=== PATIENT | male | born 2000 | race Caucasian/White ===

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

== ENCOUNTER 2021-05-03 10:17 | Emergency (ER) | payer MEDICAID, SELFPAY ==
[2021-05-03 10:18] VITALS: BP 131/71; PULSE 75; RESP 14; TEMP 36.7; O2SAT 97; BMI 23.4
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
--- NOTE | 2021-05-03 12:05 | ED.RN ---
pt states he needs to slat pickler his girlfriend from work and can't wait any longer. rn explained to pt that if he leaves it will be against medical advice. pt is agreeable.
== END 2021-05-03 12:05 | disposition left against medical advice (07) ==
PROVIDERS: Emergency Provider Emergency Medicine; PCP Pediatrics
DX: H57.89 Other specified disorders of eye and adnexa (principal)

== ENCOUNTER 2021-05-03 13:08 | Emergency (ER) | payer MEDICAID, SELFPAY ==
[2021-05-03 10:18] VITALS: BMI 23.4
[2021-05-03 13:10] VITALS: BP 115/59; PULSE 68; RESP 15; TEMP 35.8; O2SAT 98; BMI 18.3
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
== END 2021-05-03 15:40 | disposition home or self-care (01) ==
LOC: ED 15:04
PROVIDERS: Emergency Provider Emergency Medicine; PCP Pediatrics
DX: T15.92XA Foreign body on external eye, part unspecified, left eye, initial encounter (principal); H57.89 Other specified disorders of eye and adnexa
CPT/HCPCS: 99282; A4216

== ENCOUNTER 2021-05-15 09:30 | Emergency (ER) | payer MEDICAID, SELFPAY ==
[2021-05-15 09:32] VITALS: BP 143/84; PULSE 91; RESP 16; TEMP 35.8; O2SAT 99; BMI 18.6
[2021-05-15 09:46] VITALS: BP 143/84; PULSE 91; RESP 16; TEMP 35.8; O2SAT 99
--- NOTE | 2021-05-15 10:22 | RAD_ITS ---
STUDY: X-RAY CHEST REASON FOR EXAM: Male, 20 years old. Chest pain TECHNIQUE: PA and lateral views of the chest. COMPARISON: 03/10/2019 FINDINGS: The lungs are clear and expanded. There is no demonstrated pleural abnormality. Normal size heart. Normal mediastinum and dhruv. Normal visualized pulmonary arteries. Normal visualized aortic arch and descending thoracic aorta. Normal visualized thoracic spine. Normal visualized ribs, clavicles, and shoulders. There is no demonstrated abnormality of the visualized soft tissue structures of the upper abdomen. RAD/Chest PA and Lateral IMPRESSION: Normal x-ray examination of the chest. Electronically Signed: Huseyin Oglesby MD at 11:27 EDT , Service support ,
--- NOTE | 2021-05-15 11:19 | EDS_ITS ---
HPI History of Present Illness Chief Complaint: Cold Sx Informant: patient Narrative Narrative: Patient is a 20-year-old male with no significant past medical history presenting with upper respiratory symptoms. Patient states of the past few days has had congestion, mild sore throat, runny nose and cough that is been productive of clear phlegm. Had he notes he was around a friend who had similar symptoms. He also states a couple days ago he was in his chair played a video game and suddenly had pain on the left side of his chest. He stated his last for couple seconds. It felt like a cramp in his chest. That resolved but he was not sure if that in conjunction with his current symptoms were related. He also notes he needs a work note for today. He denies any fever, rash, headache or GI/ symptoms. He has not had any known exposures to Covid. He is not his Covid vaccine. He states I do not trust it. Patient does vape. PFSH PFSH Home Medications No Known/Unobtainable [No Known Home Medications] 06/07/16 [History Last Taken Unknown] Allergy/AdvReac Type Severity Reaction Status Date / Time No Known Allergies Allergy Verified 05/15/21 09:34 Surgical History History of appendectomy Social History Smoking Status: Never smoker [facility] ED Constitutional Constitutional ED: Denies chills, fever(s), malaise or sweats Eyes Eyes: Denies blurry vision or loss of vision ENT ENT ED: Reports rhinorrhea and sore throat; Denies ear pain Cardiovascular Cardiovascular: Reports chest pain; Denies dizziness Respiratory/Chest Respiratory/Chest: Reports cough and sputum; Denies dyspnea or dyspnea on exertion Gastrointestinal Gastrointestinal: Denies nausea or vomiting Genitourinary Genitourinary ED: Denies dysuria or hematuria Musculoskeletal Musculoskeletal: Denies arthralgias or myalgias Integumentary Denies rash or wounds Neurologic Neurologic: Denies focal weakness or headache(s) Psychiatric Psychiatric: Denies anxiety or behavioral changes EXAM Physical Exam Const Vital Signs: 05/15/21 09:32 05/15/21 09:46 Temperature 96.4 F L 96.4 F L Temperature Source Temporal Temporal Pulse Rate 91 91 Respiratory Rate 16 16 Respiratory Effort Normal Non-Labored Blood Pressure 143/84 H 143/84 H Blood Pressure Mean 103 103 Pulse Ox 99 99 Oxygen Delivery Method Room Air Room Air Positive well nourished and well developed General Appearance ED: well developed HEENT Reports TM's clear and moist mucous membranes HEENT Narrative: Normal oropharynx. No tonsillar exudate or erythema present. Tympanic Membrane ED: Yes TM's clear Eyes PERRL and EOMs intact bilaterally Neck no lymphadenopathy, supple and no JVD Neck Narrative: No meningeal signs Chest Wall inspection of chest normal and palpation of chest normal Resp normal respiratory effort and clear to auscultation bilaterally Cardio regular rate, regular rhythm and no murmurs GI normal to inspection, nondistended, normoactive bowel sounds Extremity normal to inspection General Extremety ED: Negative for edema General Extremity: Negative for edema Neuro oriented x3 Neuro Narrative: No focal deficits appreciated Sensorium / Orientation: alert Psych mental status grossly normal Skin no rashes or lesions noted MDM MDM MDM Narrative Medical decision making narrative: Patient evaluated for upper respiratory symptoms. Presentation is consistent with a viral URI. Does not have any cough on my exam. Given he did have an episode of chest wall pain a couple days ago and is quite thin in stature I did obtain a chest x-ray to rule out pneumothorax. This is negative. I do not suspect any cardiac event. I do not clinically suspect pneumonia and chest x-ray is not consistent with pneumonia. Patient is offered Covid test but declined stating he does not want to be swabbed. He is counseled he will wear a mask around others when he is symptomatic. However I have a lower suspicion for Covid at this time and suspect he has some other type of viral upper respiratory illness given the current patient population. Patient is given a work note per his request. He is counseled return precautions. He verbalized agreement understanding this plan. Surgically stable condition. Impression 1. Upper respiratory viral infection 2. Chest wall pain, noncardiac Radiography Chest X-Ray - ED: 2 View, Read by ED Physician, Read by Radiologist and Normal Discharge Plan Triage Chief Complaint: Cold Sx ED Provider: Ally Katz Dx/Rx/DC Orders Instructions: ED Viral Syndrome (Adult), ED URI, Viral, No Abx (Adult) Prescriptions: No Action No Known Home Medications RF: 0 Primary Care Provider: Pedro Thompson Referrals: Pedro Thompson MD [Primary Care Provider] - Activity Restrictions/Additional Instructions: Take [id number] cold and flu medicines as well as decongestants as needed for symptoms. Wear mask around others until your symptoms have resolved. Disposition Disposition: Home, Self Care
== END 2021-05-15 11:51 | disposition home or self-care (01) ==
PROVIDERS: Emergency Provider Emergency Medicine; PCP Pediatrics
DX: B34.9 Viral infection, unspecified (principal); R07.89 Other chest pain
CPT/HCPCS: 71046; 99282

== ENCOUNTER 2021-11-09 21:27 | Emergency (ER) | payer MEDICAID, SELFPAY ==
[2021-11-09 21:28] VITALS: BP 113/60; PULSE 64; RESP 16; TEMP 36.8; O2SAT 96; BMI 17.5
== END 2021-11-09 22:45 | disposition left against medical advice (07) ==
LOC: ED 22:45
PROVIDERS: PCP Pediatrics
DX: R11.2 Nausea with vomiting, unspecified (principal); Z53.21 Procedure and treatment not carried out due to patient leaving prior to being seen by health care provider

== ENCOUNTER 2022-01-09 21:06 | Emergency (ER) | payer MEDICAID, SELFPAY ==
[2022-01-09 21:06] VITALS: BP 147/79; PULSE 103; RESP 16; TEMP 36.2; O2SAT 95; BMI 19.8
--- NOTE | 2022-01-09 21:14 | EDS_ITS ---
HPI History of Present Illness Chief Complaint: Nausea/Vomiting Informant: patient Onset/Context/Timing Onset: Today Current Severity: Moderate Maximum Severity: Moderate Narrative Narrative: Patient present secondary to nausea and vomiting. Patient states he developed symptoms earlier this morning is been vomiting all day. Has been trying to sleep a lot and time he is awake he is vomiting. He does report some blood streaks with his vomitus earlier. Recently it has been clear. He denies fever but has had some chills. He denies diarrhea. He denies alcohol consumption recently. PFSH PFSH Medical History no medical history no medical history Home Medications ondansetron 4 mg PO Q8H PRN #10 tab 01/09/22 [Rx Last Taken Unknown] Allergy/AdvReac Type Severity Reaction Status Date / Time No Known Allergies Allergy Verified 01/09/22 21:07 Surgical History History of appendectomy Social History Smoking Status: Current every day smoker tobacco type: e-cigarettes ROS ROS ED Constitutional Constitutional ED: Reports chills; Denies fever(s) Eyes Eyes: Denies blurry vision or change in vision ENT ENT ED: Denies rhinorrhea or sore throat Cardiovascular Cardiovascular: Denies chest pain or palpitations Respiratory/Chest Respiratory/Chest: Denies cough or dyspnea Gastrointestinal Gastrointestinal: Reports nausea and vomiting; Denies abdominal pain or diarrhea Genitourinary Genitourinary ED: Denies dysuria or hematuria Musculoskeletal Musculoskeletal: Denies myalgias Integumentary Denies rash Neurologic Neurologic: Denies headache(s) Allergic/Immunologic Allergic/Immunologic ED: Denies urticaria EXAM Physical Exam Const Vital Signs: 01/09/22 21:06 Temperature 97.2 F L Temperature Source Temporal Pulse Rate 103 H Respiratory Rate 16 Blood Pressure 147/79 H Blood Pressure Mean 101 Pulse Ox 95 Oxygen Delivery Method Room Air Positive well nourished and well developed General Appearance ED: well developed HEENT Negative for trauma Eyes PERRL and EOMs intact bilaterally Neck supple Resp normal respiratory effort and clear to auscultation bilaterally Cardio regular rate and regular rhythm GI non-tender Auscultation: hypoactive bowel sounds Palpation: soft Extremity normal to inspection Neuro oriented x3 Sensorium / Orientation: alert Psych mental status grossly normal Skin no rashes or lesions noted MDM MDM MDM Narrative Medical decision making narrative: Patient given Zofran Protonix along with IV fluids. Lab work ordered. Lab Data Attestation: I reviewed the patient's lab results. Labs: Laboratory Results - last 24 hr 01/09/22 01/09/22 21:23 21:23 WBC 23.3 H RBC 5.10 Hgb 14.5 Hct 7.8 L MCV 76.5 L MCH 28.4 MCHC 37.2 H RDW Std Deviation 33.2 L RDW Coeff of Joselito 11.9 Plt Count 255 MPV 10.0 Immature Gran % (Auto) 0.400 Neut % (Auto) 92.5 H Lymph % (Auto) 3.0 L [place] % (Auto) 4.1 Eos % (Auto) 0.0 Baso % (Auto) 0.0 Absolute Neuts (auto) 21.6 H Absolute Lymphs (auto) 0.70 L Nucleated RBC % 0 Differential Comment SCANNED Sodium 140 Potassium 3.8 Chloride 104 Carbon Dioxide 28.0 Anion Gap 8 BUN 13 Creatinine 1.11 Estim Creat Clear Calc 88.54 Est GFR (MDRD) Af Amer 109 Est GFR (MDRD) Non-Af 90 BUN/Creatinine Ratio 11.7 Glucose 123 H Calcium 9.6 Total Bilirubin 0.80 Direct Bilirubin 0.21 AST 13 L ALT 14 L Alkaline Phosphatase 76 Total Protein 8.3 H Albumin 4.9 Globulin 3.4 Lipase 41 L Treatment and Re-Evaluation Comments:: Repeat evaluation patient sleeping comfortably. He is easily awakened. He is able to tolerate ice chips and ice water. He will begin prescription for Zofran at home. I believe his elevated white count is a stress response from the vomiting. Abdominal exam remains benign. Discharge Plan Triage Chief Complaint: Nausea/Vomiting ED Provider: Fawn Johns Dx/Rx/DC Orders Clinical Impression: Viral gastroenteritis Instructions: ED Vomiting (Adult) Prescriptions: New ondansetron 4 mg tablet,disintegrating 4 mg PO Q8H PRN (Reason: nausea and vomiting) Qty: 10 RF: 0 Primary Care Provider: Pedro Thompson Referrals: Pedro Thompson MD [Primary Care Provider] - 3-5 Days if not improving Disposition Disposition: Home, Self Care
[2022-01-09] MEDS: Ondansetron 4 MG/2 ML Vial IV (21:24)
[2022-01-09] MEDS: 0.9% Normal Saline 1,000 ML 1000 ML IV (21:26)
[2022-01-09 21:45] LABS: AST(SGOT) 13 U/L (15-37); Alanine Aminotransfer ALT/SGPT 14 U/L (16-61); Albumin, Serum 4.9 g/dL (3.2-5.0); Alkaline Phosphatase 76 U/L (45-117); Anion Gap 8 (5-15); BUN 13 mg/dL (7-18); BUN/Creat Ratio 11.7 RATIO (10-20); Bilirubin, Direct 0.21 mg/dL (0.00-0.30); Calcium,Total 9.6 mg/dL (8.5-10.1); Chloride 104 mmol/L (98-107); Creatinine, Serum 1.11 mg/dL (0.70-1.30); EST Glomerular Filtration Rate 90 mL/min (>60); Est Glom Filt Rate - Afr Amer 109 mL/min (>60); Estimated Creatinine Clearance 88.54 ml/min; Globulin 3.4 g/dL (2.2-4.2); Glucose 123 mg/dL (74-106); Lipase 41 U/L (73-393); Potassium 3.8 mmol/L (3.5-5.1); Protein, Total 8.3 g/dL (6.4-8.2); Sodium Level 140 mmol/L (136-145)
[2022-01-09 22:06] LABS: Mean Corp Hgb Conc 37.2 g/dL (32-36); Mean Corpuscular Hgb 28.4 pg (27.0-32.0); Mean Corpuscular Volume 76.5 fL (80-94); Monocyte% 4.1 % (0-10); NRBC Flagged by Analyzer 0 % (0-5); Neutrophil % 92.5 % (47-70); POSITIVE COUNT YES; POSITIVE DIFFERENTIAL YES; RBC Distribution Width CV 11.9 % (11.6-14.6); RBC Distribution Width SD 33.2 fl (35.1-43.9)
[2022-01-09 22:13] LABS: Hemoglobin 14.5 g/dL (13.0-16.5); White Blood Count 23.3 K/mm3 (4.4-11.0)
[2022-01-09 22:14] LABS: Differential Indicated SCAN CRITERIA MET; Platelet Count 255 K/mm3 (150-450)
[2022-01-09 22:16] LABS: Absolute Neutrophil Count 21.6 X10^3/uL (2.0-7.7); Monocyte# 0.95 X10^3/uL; Neutrophil # 21.55 X10^3/uL (2.7-7.7)
[2022-01-09 22:20] LABS: Differential Comment SCANNED
[2022-01-09 23:13] VITALS: PULSE 87; RESP 16; O2SAT 98
== END 2022-01-09 23:14 | disposition home or self-care (01) ==
PROVIDERS: Emergency Provider Emergency Medicine; PCP Pediatrics; Visit Provider Emergency Medicine
DX: A08.4 Viral intestinal infection, unspecified (principal); F17.210 Nicotine dependence, cigarettes, uncomplicated
CPT/HCPCS: 80048; 80076; 83690; 85025; 96365; 96375; 99284; J7030; A4216; J2405

== ENCOUNTER 2022-06-07 05:04 | Emergency (ER) | payer MEDICAID, SELFPAY ==
[2022-06-07 05:05] VITALS: BP 131/83; PULSE 78; RESP 18; TEMP 36.6; O2SAT 100; BMI 17.5
--- NOTE | 2022-06-07 05:32 | CT_ITS ---
We are attempting to reach an attending provider to discuss findings. An addendum with communication details will be sent when the communication is complete. STUDY: CT BRAIN WITHOUT CONTRAST REASON FOR EXAM: Male, 21 years old. seizure RADIATION DOSAGE (If Supplied By Facility): CTDIvol = ( 44.99 ) mGy, DLP = ( 796.11 ) mGycm TECHNIQUE: Transaxial CT imaging of the brain was performed without administration of intravenous contrast material. Individualized dose optimization techniques were used for this CT. COMPARISON: No relevant priors. FINDINGS: BRAIN: No acute bleed. No edema. Guan-white matter differentiation is maintained. Basilar artery at the skull base is relatively hyperdense which is most likely artifactual related to degree of motion and adjacent skull base. Basilar thrombosis could have a similar appearance and is difficult to exclude. VENTRICLES AND SULCI: Not dilated. EXTRA-AXIAL: No hemorrhage, fluid collection, or mass. CALVARIUM / SKULL BASE: Unremarkable. FACE/SINUSES: Unremarkable. SOFT TISSUES: Unremarkable. CT/Brain/Head without Contrast IMPRESSION: Relatively hyperdense basilar artery likely artifactual but cannot entirely exclude basilar thrombosis. If there is concern for basilar thrombosis, CT angiogram head and neck recommended. No other acute findings. Electronically Signed: Stacie Fletcher MD at 6:13 EDT ,
[2022-06-07 05:50] LABS: Absolute Lymphocyte Count 1.02 X10^3/uL (0.83-4.51); Absolute Neutrophil Count 5.2 X10^3/uL (2.0-7.7); Basophil# 0.06 X10^3/uL; Basophil% 0.9 % (0-1); Eosinophil# 0.09 X10^3/uL; Eosinophils% 1.3 % (0-5); Hematocrit 38.8 % (40-54); Hemoglobin 14.4 g/dL (13.0-16.5); Lymphocyte # 1.02 X10^3/ul (0.83-4.51); Lymphocyte % 15.2 % (19-41); Mean Corp Hgb Conc 37.1 g/dL (32-36); Mean Corpuscular Hgb 29.6 pg (27.0-32.0); Mean Corpuscular Volume 79.7 fL (80-94); Mean Platelet Vol. 9.6 fl (6.2-12.0); Monocyte# 0.36 X10^3/uL; Monocyte% 5.3 % (0-10); NRBC Flagged by Analyzer 0 % (0-5); Neutrophil # 5.18 X10^3/uL (2.7-7.7); Platelet Count 273 K/mm3 (150-450); RBC Distribution Width CV 12.2 % (11.6-14.6); RBC Distribution Width SD 35.1 fl (35.1-43.9); Red Blood Count 4.87 M/mm3 (4.6-6.2); White Blood Count 6.7 K/mm3 (4.4-11.0)
[2022-06-07] MEDS: Metoclopramide 10 MG/2 ML Vial IV (05:54)
[2022-06-07] MEDS: Ketorolac 30 MG/ML Syringe IV (05:55)
[2022-06-07] MEDS: DiphenhydrAMINE 50 MG/ML Syringe 25 MG IV (05:57)
[2022-06-07] MEDS: 0.9% Normal Saline 1,000 ML 999 ML IV (05:58)
[2022-06-07 06:12] LABS: Anion Gap 7 (5-15); BUN 12 mg/dL (7-18); BUN/Creat Ratio 12.8 RATIO (10-20); Calcium,Total 9.6 mg/dL (8.5-10.1); Chloride 105 mmol/L (98-107); Creatinine, Serum 0.94 mg/dL (0.70-1.30); EST Glomerular Filtration Rate 108 mL/min (>60); Est Glom Filt Rate - Afr Amer 131 mL/min (>60); Estimated Creatinine Clearance 98.23 ml/min; Glucose 144 mg/dL (74-106); Magnesium 2.5 mg/dL (1.6-2.6); Potassium 3.8 mmol/L (3.5-5.1); Sodium Level 137 mmol/L (136-145)
--- NOTE | 2022-06-07 06:19 | CT_ITS ---
STUDY: CTA HEAD AND NECK WITH CONTRAST REASON FOR EXAM: Male, [address] RADIATION DOSAGE (If Supplied By Facility): CTDIvol = ( 21.7 ) mGy, DLP = ( 692.16 ) mGycm TECHNIQUE: CT angiography was performed with a multi-detector CT scanner. Data acquisition was obtained from the skull base through the vertex following intravenous administration of IV 100mL [id number]-[id number]. MIP images were reconstructed from the axial data set. Post-processing of the angiographic images was performed, with multiplanar reformation and 3D reconstruction. Individualized dose optimization techniques were used for this CT. COMPARISON: Noncontrast CT head earlier.. FINDINGS: ---CTA HEAD CAROTID ARTERIES: No significant stenosis or occlusion. ANTERIOR CEREBRAL ARTERIES: No significant stenosis or occlusion. MIDDLE CEREBRAL ARTERIES: No significant stenosis or occlusion. POSTERIOR CEREBRAL ARTERIES: No significant stenosis or occlusion. BASILAR ARTERY: No significant stenosis or occlusion. VERTEBRAL ARTERIES: No significant stenosis or occlusion. VENOUS STRUCTURES: Unremarkable. OTHER: None. ---CTA NECK AORTIC ARCH: Unremarkable. CAROTID ARTERIES: No significant stenosis. VERTEBRAL ARTERIES: No significant stenosis. OTHER ARTERIES: Unremarkable. VENOUS STRUCTURES: Unremarkable. BONES/SOFT TISSUES: Unremarkable. OTHER: None. CT/CTA Head AND Neck W/ Contrast IMPRESSION: No significant stenosis or large vessel occlusion. Specifically, no basilar thrombosis. Electronically Signed: Stacie Fletcher MD at 7:34 EDT ,
--- NOTE | 2022-06-07 07:00 | EX.ED.DYSGE1 ---
HPI History of Present Illness Chief Complaint: Seizure Narrative Narrative: Patient is a 21-year-old male who was brought in by EMS today with potential seizure. The patient lives with his girlfriend and reportedly he had spasm and shaking activity while in bed. She states that he was not responding and secondary to this she called EMS. Patient reports that he remembers going to bed but nothing further. He states when he awoke he saw EMS and police around his bed and he states he knows who he was and where he is at but was unsure why those individuals were present. He sates he uses marijuana daily but otherwise denies any alcohol use or illicit drug. He denies any new medication or recent head trauma. With concern for underlying seizure he was brought in for evaluation. Patient does state that he urinated on himself during this event. PFSH PFSH Allergy/AdvReac Type Severity Reaction Status Date / Time No Known Allergies Allergy Verified 01/09/22 21:07 Surgical History History of appendectomy Social History Smoking Status: Current every day smoker tobacco type: e-cigarettes ROS ROS ED Constitutional Constitutional ED: Denies chills or fever(s) Eyes Eyes: Denies change in vision ENT ENT ED: Denies sore throat Cardiovascular Cardiovascular: Denies chest pain Respiratory/Chest Respiratory/Chest: Denies cough or dyspnea Gastrointestinal Gastrointestinal: Denies abdominal pain, diarrhea, nausea or vomiting Genitourinary Genitourinary ED: Denies dysuria Musculoskeletal Musculoskeletal: Denies back pain, myalgias or neck pain Integumentary Denies rash Neurologic Neurologic: Reports headache(s) Hematologic/Lymphatic Hematologic/Lymphatic: Denies easy bleeding or easy bruising EXAM Physical Exam Const Vital Signs: 06/07/22 05:05 Temperature 97.9 F Temperature Source Temporal Pulse Rate 78 Respiratory Rate 18 Blood Pressure 131/83 H Blood Pressure Mean 99 Pulse Ox 100 Oxygen Delivery Method Room Air Positive well nourished and well developed General Appearance ED: well developed HEENT Reports moist mucous membranes HEENT Narrative: There is a superficial abrasion along the right lateral aspect of the tongue consistent with tongue and cheek biting with seizure activity the Eyes EOMs intact bilaterally Eyes Narrative: Pupils are dilated and slightly sluggish to respond Neck supple Resp normal respiratory effort and clear to auscultation bilaterally Cardio regular rate and regular rhythm Rate: other Other Details: Radial pulses are plus 2 out of 4 bilaterally are equal and symmetric GI normal to inspection, nondistended, normoactive bowel sounds, non-tender and non-distended Auscultation: normoactive bowel sounds Palpation: soft Extremity normal to inspection Neuro oriented x3 and CN's II-XII intact bilaterally Neuro Narrative: Cranial nerves II through XII are grossly intact there are no focal neurologic deficit. No pronator drift no dysmetria no truncal ataxia. NIH stroke scale score of 0. Sensorium / Orientation: alert Psych Psych Narrative: Patient has a depressed/flat affect Skin no rashes or lesions noted Skin Narrative: No secondary changes to suggest trauma or infection MDM MDM MDM Narrative Medical decision making narrative: Patient presented to the ER awake alert and oriented with normal neurologic exam. He did not report a postictal phase but did state that he urinated on himself and on exam had small abrasion to the right tongue which could correlate with seizure activity. Secondary to this a basic work-up was obtained. Laboratory studies revealed no clinically significant finding. Head CT question of basilar artery thrombosis and therefore patient was sent for CTA. At this time he is awake and alert with stable vitals and normal neurologic exam and no signs of repeat seizure while in the ER. Therefore I feel that if the CTA does not reveal any signs of basilar artery thrombosis he is otherwise safe for discharge as he is awake and alert at his baseline mental status with normal neurologic exam and no focal laboratory derangements Lab Data Attestation: I reviewed the patient's lab results. Labs: Laboratory Results - last 24 hr 06/07/22 06/07/22 06/07/22 05:40 05:40 05:40 WBC 6.7 RBC 4.87 Hgb 14.4 Hct 38.8 L MCV 79.7 L MCH 29.6 MCHC 37.1 H RDW Std Deviation 35.1 RDW Coeff of Joselito 12.2 Plt Count 273 MPV 9.6 Immature Gran % (Auto) 0.300 Neut % (Auto) 77.0 H Lymph % (Auto) 15.2 L Maverick % (Auto) 5.3 Eos % (Auto) 1.3 Baso % (Auto) 0.9 Absolute Neuts (auto) 5.2 Absolute Lymphs (auto) 1.02 Nucleated RBC % 0 Sodium 137 Potassium 3.8 Chloride 105 Carbon Dioxide 25.0 Anion Gap 7 BUN 12 Creatinine 0.94 Estim Creat Clear Calc 98.23 Est GFR (MDRD) Af Amer 131 Est GFR (MDRD) Non-Af 108 BUN/Creatinine Ratio 12.8 Glucose 144 H Lactic Acid 2.0 Calcium 9.6 Magnesium 2.5 Radiography Diagnostic Testing: Clinical Impression(s) from Imaging Studies Brain CT 06/07/22 05:32 IMPRESSION: Relatively hyperdense basilar artery likely artifactual but cannot entirely exclude basilar thrombosis. If there is concern for basilar thrombosis, CT angiogram head and neck recommended. No other acute findings. Electronically Signed: Stacie Fletcher MD at 6:13 EDT Reading Location ID and State: [facility] [place][note 3] / MD Tel , Service support , ADDENDUM: 06/07/22 0626 IMPRESSION: Relatively hyperdense basilar artery likely artifactual but cannot entirely exclude basilar thrombosis. If there is concern for basilar thrombosis, CT angiogram head and neck recommended. No other acute findings. N.B. : The above Results were Read Back by Stacie Fletcher MD to Dr. Sadie MD, and understanding confirmed on 06/07/2022 06:19:03 (ET). Electronically Signed: Stacie Fletcher MD at 6:13 EDT , Discharge Plan Triage Chief Complaint: Seizure ED Provider: Massimo Noel Dx/Rx/DC Orders Clinical Impression: Seizure-like activity Instructions: ED Seizure New Onset Unknown ... Stand Alone Forms: ED Work / School Excuse Primary Care Provider: Pedro Thompson Referrals: Pedro Thompson MD [Primary Care Provider] - Poncho Nguyen MD [NON-STAFF] - 3-5 Days Activity Restrictions/Additional Instructions: With potential seizure-like activity had occurred this evening please do not drive or operate heavy machinery until you are cleared by neurology Disposition Disposition: Home, Self Care
[2022-06-07 08:10] LABS: Bedside Glucose 133 mg/dL (74-106)
[2022-06-07 08:34] LABS: Amphetamine Urine VISTA NEGATIVE (<1000 ng/mL); Barbiturate Urine VISTA NEGATIVE (< 200 ng/mL); Benzodiazepine Urine VISTA NEGATIVE (< 200 ng/mL); Cocaine Urine VISTA NEGATIVE (< 300 ng/mL); Ecstacy Urine VISTA NEGATIVE (< 500 ng/mL); Methadone Urine VISTA NEGATIVE (< 300 ng/mL); PCP Urine VISTA NEGATIVE (< 25 ng/mL); THC Urine VISTA POSITIVE (< 50 ng/mL); Vista UDS pH Range 6
[2022-06-07 09:45] LABS: Reflex Lactate? Y
[2022-06-07 09:54] VITALS: BP 128/69; RESP 16
== END 2022-06-07 09:59 | disposition home or self-care (01) ==
PROVIDERS: Emergency Medicine; Emergency Provider Emergency Medicine; PCP Pediatrics; Visit Provider Emergency Medicine
DX: G40.409 Other generalized epilepsy and epileptic syndromes, not intractable, without status epilepticus (principal); S00.512A Abrasion of oral cavity, initial encounter; F17.210 Nicotine dependence, cigarettes, uncomplicated; R40.0 Somnolence; F17.290 Nicotine dependence, other tobacco product, uncomplicated; E66.9 Obesity, unspecified
CPT/HCPCS: 70450; 70496; 70498; 80048; 80307; 82962; 83605; 83735; 85025; 87428; 96361; 96365; 96374; 96375; 99285; J7030; Q9967; A4216

== ENCOUNTER 2022-06-07 11:56 | Emergency (ER) | payer MEDICAID, SELFPAY ==
[2022-06-07] VITALS (8 sets, daily range): BP systolic 81–141; BP diastolic 32–116; PULSE 59–106; RESP 12–21; TEMP 35.7; O2SAT 97–100; BMI 18.9
--- NOTE | 2022-06-07 12:12 | EDS_ITS ---
HPI History of Present Illness Chief Complaint: Seizure Detail of Chief Complaint: Witnessed generalized tonic-clonic seizure Informant: family Onset/Context/Timing Onset: Hours Context: Sudden Onset Timing: Intermittent Quality: Generalized tonic-clonic seizure Location: Home Current Severity: Postictal Worsened by: Unknown Relieved by: Unknown Associated Symptoms Associated Symptoms: Unknown Narrative Narrative: Patient is a 21-year-old male who was seen last evening. Work-up included appropriate blood work, CT and CTA of the head neck because of an abnormality was noted on the unenhanced scan. The CTA was unremarkable. He was just discharged from [facility]. He was not started on Dicobalt since its this was his first seizure. Presently he is postictal and unable to obtain any information other than what was provided by family members Prior similar symptoms: Yes Recent Illness/Hospitalization: Yes PFSH PFSH Home Medications levetiracetam 500 mg tablet (Keppra) 500 mg PO BID #60 tabs 06/07/22 [Rx Last Taken Unknown] Allergy/AdvReac Type Severity Reaction Status Date / Time No Known Allergies Allergy Verified 01/09/22 21:07 Surgical History History of appendectomy Social History (Updated 06/07/22 @ 12:[address] Arsh Celis MD) household members: family Smoking Status: Current every day smoker tobacco type: cigarettes and e- cigarettes substance use type: marijuana ROS ROS ED Review of Systems ROS Unobtainable: due to mental status EXAM Physical Exam Const Vital Signs: 06/07/22 11:57 06/07/22 12:45 06/07/22 13:44 Temperature 96.2 F L Temperature Source Temporal Pulse Rate 106 H 69 66 Respiratory Rate 16 12 20 H Blood Pressure 128/116 H 141/81 H 94/59 L Blood Pressure Mean 120 101 70 Pulse Ox 98 97 100 Oxygen Delivery Method Room Air Room Air Room Air 06/07/22 14:00 06/07/22 15:00 06/07/22 15:54 Temperature Temperature Source Pulse Rate 60 64 59 L Respiratory Rate 21 H 17 17 Blood Pressure 92/35 L 81/42 L 91/32 L Blood Pressure Mean 54 55 51 Pulse Ox 100 100 100 Oxygen Delivery Method Room Air Room Air Room Air Negative for well nourished, well developed, obese or cachectic Constitutional Narrative: Patient is pale. He presently is not verbal. He looks around and squirms. General Appearance ED: NAD and pallor; Negative for well developed, cachectic, cyanotic or diaphoretic Nutritional Appearance: Negative for cachectic or obese HEENT Reports moist mucous membranes Negative for trauma or tenderness Eyes PERRL and EOMs intact bilaterally Eyes Narrative: Gaze is conjugate. There is no subconjunctival hemorrhage noted. General Eye ED: Negative for pale conjunctiva or scleral icterus Neck no lymphadenopathy, supple and no JVD Chest Wall inspection of chest normal and palpation of chest normal Resp normal respiratory effort and clear to auscultation bilaterally Cardio regular rate, regular rhythm, S1 normal heart sound, S2 normal heart sound and no murmurs GI normal to inspection, nondistended, normoactive bowel sounds, non-tender and non-distended; Negative for hepatosplenomegaly Back/Spine no CVA tenderness Extremity normal to inspection General Extremety ED: Negative for edema or tenderness General Extremity: Negative for edema Neuro CN's II-XII intact bilaterally Neuro Narrative: Moves all extremities. Reflexes are symmetric. There is no clonus. Bilateral Penske sign. Psych Psych Narrative: Unable to determine Skin no rashes or lesions noted, no wounds and skin turgor normal General Skin Exam: pallor; Negative for jaundice MDM MDM MDM Narrative Medical decision making narrative: Document from earlier today was reviewed and read. Patient has had a second seizure in less than 24 hours. He has had a significant work-up. He will receive 1 g of Keppra IV piggyback which is equivalent to 17 mg/kg. Will observe patient. I was informed by nursing staff that blood pressure is low however patient is very thin. Patient is no longer postictal on reevaluation at 1430. He is somnolent. He does awake with repeated verbal and tactile stimulus. Will observe. Mother has been told he will not be able to drive, use of heavy machinery, swim in a pool or doss, take a bath etc. until he is cleared by neurologist. Patient was reassessed at 1546. He is now awake alert oriented. Girlfriend states she is attempted to call neurologist. He is on a waiting list till October. She was given a list of 5 other neurologist to call and determine if she can get her boyfriend Shmuel an appointment sooner. Discharge Plan Triage Chief Complaint: Seizure ED Provider: Arsh Celis Dx/Rx/DC Orders Clinical Impression: Generalized tonic-clonic seizure Instructions: ED Seizure New Onset Unknown ... Prescriptions: New levetiracetam [Keppra] 500 mg tablet 500 mg PO BID Qty: 60 2RF Primary Care Provider: Pedro Thompson Referrals: Pedro Thompson MD [Primary Care Provider] - Activity Restrictions/Additional Instructions: No driving, use of equipment, doing anything above ground level, swimming in a pool, doss or pond until you are seen by neurologist and cleared. Disposition Disposition: Home, Self Care
[2022-06-07] MEDS: levETIRAcetam IV 1,000 MG/100 ML BAG 400 MG IV (12:42)
--- NOTE | 2022-06-07 14:26 | ED.RN ---
Dr. Celis notified on patient HR and BP trending lower than on arrival. Patient asymptomatic from blood pressure and HR, ambulates to bathroom well, sleeps but arouses easily which is improved than on arrival
--- NOTE | 2022-06-07 16:15 | ED.RN ---
Patient more awake now, vitals improved after awakening and sitting up in bed.
== END 2022-06-07 16:27 | disposition home or self-care (01) ==
PROVIDERS: Emergency Provider Emergency Medicine; PCP Pediatrics; Visit Provider Emergency Medicine
DX: G40.409 Other generalized epilepsy and epileptic syndromes, not intractable, without status epilepticus (principal); F17.210 Nicotine dependence, cigarettes, uncomplicated; R40.0 Somnolence; E66.9 Obesity, unspecified; Z79.899 Other long term (current) drug therapy
CPT/HCPCS: 96365; A4216

== ENCOUNTER 2022-09-22 22:40 | Emergency (ER) | payer MEDICAID, SELFPAY ==
[2022-09-22 22:41] VITALS: BP 105/90; PULSE 93; RESP 16; TEMP 35.8; O2SAT 97; BMI 18.8
--- NOTE | 2022-09-22 23:18 | EDS_ITS ---
HPI History of Present Illness Chief Complaint: Seizure Informant: patient, parent and EMS Narrative Narrative: 21-year-old male with a recent history of repeated seizures presents to the emergency room with a seizure. Mom states that he has not been taking his K eppra which she was prescribed. Apparently he had a seizure up near [place] and was seen in an emergency room. He has had several seizures since. He has not had any follow-up and has not taken his medications. Apparently the mom states that he was sweaty and pale and that she brought him a bowling ball (and no this is not a dragon error). I asked for an explanation because I am concerned she has intoxication. It was reported to me that the patient was already being brought a bowling ball that they had bought when they were called to come see him. Reportedly he had a 2-minute seizure generalized and then was postictal. Emergency came and then left but then he became aggressive and the squad came back and they brought him in. He readily admits that he is not taking his Keppra. He has had no follow-up such as ECG or MRI. He states now he feels like he can just go back home. There is reported recreational marijuana use [facility] Medical History Seizure Home Medications levetiracetam 500 mg tablet (Keppra) 500 mg PO BID #60 tabs 06/07/22 [Rx Last Taken Unknown] Allergy/AdvReac Type Severity Reaction Status Date / Time No Known Allergies Allergy Verified 01/09/22 21:07 Surgical History History of appendectomy Social History household members: family Smoking Status: Current every day smoker tobacco type: cigarettes and e- cigarettes substance use type: marijuana ROS ROS ED Constitutional Constitutional ED: Denies chills or weight loss Eyes Eyes: Denies change in vision or diplopia ENT ENT ED: Denies ear pain, rhinorrhea or sore throat Cardiovascular Cardiovascular: Denies chest pain, orthopnea, palpitations or racing heartbeat Respiratory/Chest Respiratory/Chest: Denies cough, dyspnea or orthopnea Gastrointestinal Gastrointestinal: Denies abdominal pain, diarrhea, nausea or vomiting Genitourinary Genitourinary ED: Denies dysuria, hematuria or urinary frequency Musculoskeletal Musculoskeletal: Denies arthralgias or myalgias Integumentary Denies abscess or rash Neurologic Neurologic: Reports other Details: See history of present illness ; Denies headache(s) or weakness Psychiatric Psychiatric: Denies anxiety, depression, suicidal ideation or suicidal thoughts Endocrine Endocrinology: Denies polydipsia, polyphagia or polyuria Allergic/Immunologic Allergic/Immunologic ED: Denies mouth swelling, tongue swelling or urticaria EXAM Physical Exam Const Vital Signs: 09/22/22 22:41 Temperature 96.5 F L Temperature Source Temporal Pulse Rate 93 Respiratory Rate 16 Blood Pressure 105/90 H Blood Pressure Mean 95 Pulse Ox 97 Oxygen Delivery Method Room Air Positive well nourished and well developed General Appearance ED: well developed HEENT Reports normocephalic, head/scalp atraumatic and moist mucous membranes Eyes PERRL and EOMs intact bilaterally Neck no lymphadenopathy, supple and no JVD Resp normal respiratory effort and clear to auscultation bilaterally Cardio regular rate, regular rhythm and no murmurs GI normal to inspection, nondistended, normoactive bowel sounds and non-tender Palpation: soft Back/Spine no CVA tenderness and normal ROM Extremity normal to inspection General Extremety ED: Negative for edema General Extremity: Negative for edema Neuro oriented x3 and CN's II-XII intact bilaterally Sensorium / Orientation: alert Motor Exam: strength 5/5 throughout Psych mental status grossly normal Mood & Affect: Negative for depressed or tearful Skin no rashes or lesions noted and no wounds MDM MDM MDM Narrative Medical decision making narrative: Basic blood work was obtained and was negative. Anion gap of 7 with a CO2 of 28. The patient was loaded with a gram of Keppra. He was told that if he continues to not take his Keppra that he will most likely keep having seizures. I can refer him to neurology return if worsening or concerns Lab Data Attestation: I reviewed the patient's lab results. Labs: Laboratory Results - last 24 hr 09/22/22 09/22/22 23:25 23:25 WBC 7.9 RBC 4.89 Hgb 14.1 Hct 39.8 L MCV 81.4 MCH 28.8 MCHC 35.4 RDW Std Deviation 36.1 RDW Coeff of Joselito 12.2 Plt Count 277 MPV 9.4 Immature Gran % (Auto) 0.400 Neut % (Auto) 75.7 H Lymph % (Auto) 14.5 L Woodward % (Auto) 8.1 Eos % (Auto) 0.5 Baso % (Auto) 0.8 Absolute Neuts (auto) 6.0 Absolute Lymphs (auto) 1.14 Nucleated RBC % 0 Sodium 139 Potassium 3.8 Chloride 104 Carbon Dioxide 28.0 Anion Gap 7 BUN 10 Creatinine 0.98 Estim Creat Clear Calc 101.19 Est GFR (MDRD) Af Amer 125 Est GFR (MDRD) Non-Af 103 BUN/Creatinine Ratio 10.2 Glucose 112 H Calcium 9.4 Total Bilirubin 0.80 AST 16 ALT 16 Alkaline Phosphatase 70 Total Protein 7.6 Albumin 4.5 Globulin 3.1 Albumin/Globulin Ratio 1.5 Discharge Plan Triage Chief Complaint: Seizure ED Provider: Devendra Mary Dx/Rx/DC Orders Clinical Impression: Recurrent seizures, Medical non-compliance Instructions: ED Seizure, Recurrent (Adult) Prescriptions: No Action levetiracetam [Keppra] 500 mg tablet 500 mg PO BID Qty: 60 2RF Primary Care Provider: Pedro Thompson Referrals: Pedro Thompson MD [Primary Care Provider] - Poncho Nguyen MD [Non-Staff -Ordering Privileges] - As soon as possible Disposition Disposition: Home, Self Care
[2022-09-22 23:30] LABS: Absolute Lymphocyte Count 1.14 X10^3/uL (0.83-4.51); Basophil# 0.06 X10^3/uL; Basophil% 0.8 % (0-1); Eosinophil# 0.04 X10^3/uL; Eosinophils% 0.5 % (0-5); Hematocrit 39.8 % (40-54); Hemoglobin 14.1 g/dL (13.0-16.5); Lymphocyte # 1.14 X10^3/ul (0.83-4.51); Lymphocyte % 14.5 % (19-41); Mean Corp Hgb Conc 35.4 g/dL (32-36); Mean Corpuscular Hgb 28.8 pg (27.0-32.0); Mean Corpuscular Volume 81.4 fL (80-94); Mean Platelet Vol. 9.4 fl (6.2-12.0); Monocyte# 0.64 X10^3/uL; Monocyte% 8.1 % (0-10); NRBC Flagged by Analyzer 0 % (0-5); Neutrophil # 5.96 X10^3/uL (2.7-7.7); Neutrophil % 75.7 % (47-70); Platelet Count 277 K/mm3 (150-450); RBC Distribution Width CV 12.2 % (11.6-14.6); RBC Distribution Width SD 36.1 fl (35.1-43.9); Red Blood Count 4.89 M/mm3 (4.6-6.2); White Blood Count 7.9 K/mm3 (4.4-11.0)
[2022-09-22] MEDS: levETIRAcetam IV 1,000 MG/100 ML BAG 400 MG IV (23:34)
[2022-09-22 23:47] LABS: ALB/GLOB Ratio 1.5 RATIO (0.9-2.4); AST(SGOT) 16 U/L (15-37); Alanine Aminotransfer ALT/SGPT 16 U/L (16-61); Albumin, Serum 4.5 g/dL (3.2-5.0); Alkaline Phosphatase 70 U/L (45-117); Anion Gap 7 (5-15); BUN 10 mg/dL (7-18); BUN/Creat Ratio 10.2 RATIO (10-20); Calcium,Total 9.4 mg/dL (8.5-10.1); Chloride 104 mmol/L (98-107); Creatinine, Serum 0.98 mg/dL (0.70-1.30); EST Glomerular Filtration Rate 103 mL/min (>60); Est Glom Filt Rate - Afr Amer 125 mL/min (>60); Estimated Creatinine Clearance 101.19 ml/min; Globulin 3.1 g/dL (2.2-4.2); Glucose 112 mg/dL (74-106); Potassium 3.8 mmol/L (3.5-5.1); Protein, Total 7.6 g/dL (6.4-8.2); Sodium Level 139 mmol/L (136-145)
[2022-09-23 00:49] VITALS: PULSE 89; RESP 15; O2SAT 99
== END 2022-09-23 00:49 | disposition home or self-care (01) ==
PROVIDERS: Emergency Provider Emergency Medicine; PCP Pediatrics; Visit Provider Emergency Medicine
DX: G40.909 Epilepsy, unspecified, not intractable, without status epilepticus (principal); F12.90 Cannabis use, unspecified, uncomplicated; F17.210 Nicotine dependence, cigarettes, uncomplicated; F17.290 Nicotine dependence, other tobacco product, uncomplicated; Z91.199 Patient's noncompliance with other medical treatment and regimen due to unspecified reason
CPT/HCPCS: 80053; 85025; 96365; 99285; A4216

== ENCOUNTER 2022-11-02 14:20 | Emergency (ER) | payer MEDICAID, SELFPAY ==
[2022-11-02 14:21] VITALS: BP 152/65; PULSE 96; RESP 14; TEMP 35.8; O2SAT 96; BMI 20.3
--- NOTE | 2022-11-02 14:27 | EDS_ITS ---
HPI <Dr. Arsh Celis MD - Last Filed: 11/02/22 15:40> History of Present Illness Chief Complaint: Seizure Detail of Chief Complaint: Recurrent seizure Informant: parent and family Limited: other (Postictal/actively seizing) Onset/Context/Timing Onset: Today (X3) Context: Sudden Onset Timing: Intermittent Quality: Generalized tonic-clonic with eyes deviated to the right Location: Examination room and at home Current Severity: Severe Maximum Severity: Severe Worsened by: Noncompliance with anticonvulsant medication Relieved by: Versed Associated Symptoms Associated Symptoms: Unable to determine Narrative Narrative: Patient is a 21-year-old male who was diagnosed with seizure disorder this past summer. According to girlfriend he has not taken his medication in 1 month. He arrived postictal. He apparently was combative after his second seizure. He refused transport after first. He did receive Geodon for his combative behavior. Upon presentation patient was minimally responsive and had a generalized tonic-clonic seizure with eyes deviated to the left. He was cyanotic. No other history is available other than what has been documented. Prior similar symptoms: Yes Recent Illness/Hospitalization: Yes PFSH <Dr. Arsh Celis MD - Last Filed: 11/02/22 15:40> [facility] Medical History Seizure Home Medications levetiracetam 500 mg tablet (Keppra) 500 mg PO BID #60 tabs 06/07/22 [Rx Last Taken Unknown] levetiracetam 500 mg tablet (Keppra) 500 mg PO BID #60 tabs 11/02/22 [Rx Last Taken Unknown] ondansetron 4 mg disintegrating tablet 4 mg PO Q6H PRN nausea and vomiting #20 tabs 11/02/22 [Rx Last Taken Unknown] Allergy/AdvReac Type Severity Reaction Status Date / Time No Known Allergies Allergy Verified 01/09/22 21:07 Surgical History History of appendectomy Social History household members: family Smoking Status: Current every day smoker tobacco type: cigarettes and e- cigarettes substance use type: marijuana ROS <Dr. Arsh Celis MD - Last Filed: 11/02/22 15:40> ROS ED Review of Systems ROS Unobtainable: due to mental status EXAM <Dr. Arsh Celis MD - Last Filed: 11/02/22 15:40> Physical Exam Const Vital Signs: 11/02/22 14:21 11/02/22 14:56 11/02/22 16:16 Temperature 96.5 F L Temperature Source Temporal Pulse Rate 96 Respiratory Rate 14 Blood Pressure 152/65 H 114/65 Blood Pressure Mean 94 81 Pulse Ox 96 98 Oxygen Delivery Method Room Air Room Air 11/02/22 18:03 Temperature Temperature Source Pulse Rate Respiratory Rate Blood Pressure 125/74 H Blood Pressure Mean 91 Pulse Ox Oxygen Delivery Method Positive well nourished and well developed Constitutional Narrative: Active seizing General Appearance ED: well developed and cyanotic; Negative for diaphoretic or pallor HEENT Reports moist mucous membranes HEENT Narrative: Head is atraumatic normocephalic. Ears normal. Nares patent. Teeth appear normal. Mucosas moist. Eyes PERRL and EOMs intact bilaterally General Eye ED: Negative for pale conjunctiva or scleral icterus Neck no lymphadenopathy and no JVD Chest Wall inspection of chest normal and palpation of chest normal Resp normal respiratory effort and clear to auscultation bilaterally Cardio regular rate, regular rhythm, S1 normal heart sound, S2 normal heart sound and no murmurs GI normal to inspection, nondistended, normoactive bowel sounds, non-tender, non- distended and no masses; Negative for hepatosplenomegaly Extremity normal to inspection General Extremety ED: Negative for edema or tenderness General Extremity: Negative for edema Neuro No oriented x3 Neuro Narrative: Patient was actively seizing. We will have to reevaluate. Psych Psych Narrative: Unable to determine Skin no rashes or lesions noted, no wounds and skin turgor normal General Skin Exam: Negative for elasticity normal, jaundice or pallor <Dr. Ally Katz DO - Last Filed: 11/02/22 18:08> Physical Exam Const Vital Signs: 11/02/22 14:21 11/02/22 14:56 11/02/22 16:16 Temperature 96.5 F L Temperature Source Temporal Pulse Rate 96 Respiratory Rate 14 Blood Pressure 152/65 H 114/65 Blood Pressure Mean 94 81 Pulse Ox 96 98 Oxygen Delivery Method Room Air Room Air 11/02/22 18:03 Temperature Temperature Source Pulse Rate Respiratory Rate Blood Pressure 125/74 H Blood Pressure Mean 91 Pulse Ox Oxygen Delivery Method [facility] <Dr. Arsh Celis MD - Last Filed: 11/02/22 15:40> [facility] Narrative Medical decision making narrative: Patient presents with third seizure today. This is due to noncompliance. He received IM Versed since he did not have IV access when he arrived. He was loaded with Keppra IV piggyback. Basic metabolic panel was obtained to rule out hyponatremia. Will reassess blood pressure in 30 to 60 minutes. Patient was reassessed at 1535. He is still groggy. Suspect this may be due to the meds he received i.e. Geodon, IM Versed and 1 g of Keppra IV piggyback. Lab Data Attestation: I reviewed the patient's lab results. Lab results narrative: Patient has an anion gap acidosis due to his seizure. Glucose is elevated which may be due to the seizure. He has had elevated glucoses past studies as well. Labs: Laboratory Results - last 24 hr 11/02/22 14:30 Sodium 142 Potassium 3.4 L Chloride 105 Carbon Dioxide 14.0 L Anion Gap 23 H BUN 10 Creatinine 1.17 Estim Creat Clear Calc 86.61 Est GFR (MDRD) Af Amer 101 Est GFR (MDRD) Non-Af 84 BUN/Creatinine Ratio 8.5 L Glucose 177 H Calcium 10.0 <Dr. Ally Katz DO - Last Filed: 11/02/22 18:08> [facility] Lab Data Labs: Laboratory Results - last 24 hr 11/02/22 14:30 Sodium 142 Potassium 3.4 L Chloride 105 Carbon Dioxide 14.0 L Anion Gap 23 H BUN 10 Creatinine 1.17 Estim Creat Clear Calc 86.61 Est GFR (MDRD) Af Amer 101 Est GFR (MDRD) Non-Af 84 BUN/Creatinine Ratio 8.5 L Glucose 177 H Calcium 10.0 Treatment and Re-Evaluation Narrative: Patient signed out to me pending reevaluation once more awake. Initially patient sleeping. Family arrived and patient is now more alert. He is ready to leave. He becomes argumentative with nurse when he is requesting for his IV to immediately be removed. Patient then becomes nauseous and has a small episode of vomiting. He is given a dose of IV Zofran. Abdominal exam is soft and benign. Vital signs are normal. He is still requesting to go home. Patient is returning to baseline and family is at the bedside. Given return precautions. He does not want further evaluation of this vomiting. Is given referral for neurology per family request. Is given a refill of his Keppra and as well as a course of Zofran. Discharge Plan Triage Chief Complaint: Seizure ED Provider: Ally Katz Dx/Rx/DC Orders Clinical Impression: Generalized tonic-clonic seizure, Noncompliance w/medication treatment due to intermit use of medication, Nausea and vomiting Instructions: ED Seizure, Recurrent (Adult) Prescriptions: New ondansetron 4 mg tablet,disintegrating 4 mg PO Q6H PRN (Reason: nausea and vomiting) Qty: 20 0RF levetiracetam [Keppra] 500 mg tablet 500 mg PO BID Qty: 60 0RF No Action levetiracetam [Keppra] 500 mg tablet 500 mg PO BID Qty: 60 2RF Primary Care Provider: Pedro Thompson Referrals: Pedro Thompson MD [Primary Care Provider] - Poncho Nguyen MD [Non-Staff -Ordering Privileges] - As soon as possible Activity Restrictions/Additional Instructions: 1. You will need to be evaluated by Dr. Thompson or neurologist before you are permitted to drive. 2. You should not take baths, go swimming, go up ladders or use power equipment until cleared by neurologist. 3. You must take your medicine as prescribed Disposition Disposition: Home, Self Care
[2022-11-02] MEDS: Midazolam 2 MG/2 ML Syringe IM (14:55)
[2022-11-02] MEDS: levETIRAcetam IV 1,000 MG/100 ML BAG 400 MG IV (14:55)
[2022-11-02 14:56] VITALS: O2SAT 98
[2022-11-02 15:02] LABS: Anion Gap 23 (5-15); BUN 10 mg/dL (7-18); BUN/Creat Ratio 8.5 RATIO (10-20); Chloride 105 mmol/L (98-107); Creatinine, Serum 1.17 mg/dL (0.70-1.30); EST Glomerular Filtration Rate 84 mL/min (>60); Est Glom Filt Rate - Afr Amer 101 mL/min (>60); Estimated Creatinine Clearance 86.61 ml/min; Glucose 177 mg/dL (74-106); Potassium 3.4 mmol/L (3.5-5.1); Sodium Level 142 mmol/L (136-145)
[2022-11-02 16:16] VITALS: BP 114/65
--- NOTE | 2022-11-02 17:56 | ED.RN ---
patient said the F work over and over again to this nurse and continued to says it is not that fucking hard to understand and asked for his IV to be taken out. This nurse told the patient to please not talk to him like that and I cannot pull the line until he is discharged. The mother told patient to put on his clothes and he yelled out, it is not that fucking hard to understand, why would I get dressed first, take the IV out. Asked patient again to not talk to me using the f word and patient asked who I was to tell him how to talk to me. Told him I am an adult and asking him to talk to me in a more respectful way. Patient again told this nurse to fuck off and mother started to yell at this nurse. Told doctor patient wants D/C and went to get security and police to be at bedside. Mother told doctor she does not want this nurse at bedside.
[2022-11-02] MEDS: Ondansetron 4 MG/2 ML Vial IV (18:02)
[2022-11-02 18:03] VITALS: BP 125/74
== END 2022-11-02 18:13 | disposition home or self-care (01) ==
PROVIDERS: Emergency Medicine; Emergency Provider Emergency Medicine; PCP Pediatrics; Visit Provider Emergency Medicine
DX: G40.409 Other generalized epilepsy and epileptic syndromes, not intractable, without status epilepticus (principal); R11.2 Nausea with vomiting, unspecified; F17.210 Nicotine dependence, cigarettes, uncomplicated; F17.290 Nicotine dependence, other tobacco product, uncomplicated; Z91.199 Patient's noncompliance with other medical treatment and regimen due to unspecified reason
CPT/HCPCS: 80048; 96365; 96372; 96375; 99285; A4216; J2405

== ENCOUNTER 2023-06-11 14:35 | Emergency (ER) | payer MEDICAID, SELFPAY ==
[2023-06-11] VITALS (9 sets, daily range): BP systolic 129–162; BP diastolic 62–102; PULSE 70–89; RESP 10–26; TEMP 36.6; O2SAT 92–99; BMI 20.3
--- NOTE | 2023-06-11 15:19 | EDS_ITS ---
HPI History of Present Illness Chief Complaint: Seizure Informant: patient Onset/Context/Timing Onset: Today Narrative Narrative: Patient presents via EMS secondary to increased seizure frequency. Patient reportedly has history of seizures. Friends at bedside state this morning he had at least 3 seizures. They do not believe he has been compliant with his medications but did reportedly take it either last night or this morning. Our last records indicate the patient was on Keppra. Friend at bedside states she thinks he is no longer on Keppra but does not know what he is on. I was able to find a note from the epilepsy center at [facility] on March 20. At that time it appears they increased oxcarbazepine to 600 mg twice daily with plan to taper off of Keppra. He has clonazepam for rescue. Friends think he has not had a seizure since February or March. [facility] Medical History Seizure Home Medications levetiracetam 500 mg tablet (Keppra) 500 mg PO BID #60 tabs 06/07/22 [Rx Last Taken Unknown] levetiracetam 500 mg tablet (Keppra) 500 mg PO BID #60 tabs 11/02/22 [Rx Last Taken Unknown] ondansetron 4 mg disintegrating tablet 4 mg PO Q6H PRN nausea and vomiting #20 tabs 11/02/22 [Rx Last Taken Unknown] oxcarbazepine 600 mg tablet 600 mg PO BID #60 tabs 06/11/23 [Rx Last Taken Unknown] Allergy/AdvReac Type Severity Reaction Status Date / Time No Known Allergies Allergy Verified 01/09/22 21:07 Surgical History History of appendectomy Social History household members: family Smoking Status: Current every day smoker tobacco type: cigarettes and e- cigarettes substance use type: marijuana ROS ROS ED ROS Narrative Limited history by patient. Sitting upright and actively vomiting. He denies fever or headache. EXAM Physical Exam Const Vital Signs: 06/11/23 14:40 06/11/23 14:43 06/11/23 15:49 Temperature 97.9 F Temperature Source Oral Pulse Rate 72 89 Respiratory Rate 18 24 H Blood Pressure 139/72 H 133/77 H Blood Pressure Mean 94 95 Pulse Ox 96 99 Oxygen Delivery Method Room Air Room Air Room Air 06/11/23 16:16 06/11/23 16:46 06/11/23 16:52 Temperature Temperature Source Pulse Rate 70 83 80 Respiratory Rate 21 H 16 10 L Blood Pressure 129/62 H 131/102 H 162/64 H Blood Pressure Mean 84 111 96 Pulse Ox 92 Oxygen Delivery Method Room Air Room Air Room Air 06/11/23 17:04 Temperature Temperature Source Pulse Rate 82 Respiratory Rate 23 H Blood Pressure 135/80 H Blood Pressure Mean 98 Pulse Ox 93 Oxygen Delivery Method Room Air Positive well nourished and well developed General Appearance ED: well developed HEENT Reports moist mucous membranes Eyes EOMs intact bilaterally Chest Wall inspection of chest normal and palpation of chest normal Resp normal respiratory effort and clear to auscultation bilaterally Cardio regular rate and regular rhythm GI non-tender Extremity normal to inspection Neuro Neuro Narrative: Moves all extremities. Skin Skin Narrative: Erythematous abrasions to his back. Friend states this is from riding on the floor during his seizure activity. MDM MDM MDM Narrative Medical decision making narrative: Labwork obtained to evaluate for leukocytosis, anemia, and electrolyte derangement. Patient ordered 1 mg of IV Ativan. He is also ordered Zofran for nausea. I was able to look at prior records and [facility]. He went to the epilepsy center at [facility] in March. At that time instructions were to wean off of his Keppra and increase carbamazepine to 600 mg twice daily. Lab Data Attestation: I reviewed the patient's lab results. Labs: Laboratory Results - last 24 hr 06/11/23 15:42 WBC 18.3 H RBC 4.98 Hgb 14.3 Hct 41.1 MCV 82.5 MCH 28.7 MCHC 34.8 RDW Std Deviation 37.9 RDW Coeff of Joselito 12.7 Plt Count 277 MPV 9.1 Immature Gran % (Auto) 0.600 Neut % (Auto) 92.8 H Lymph % (Auto) 2.0 L [place] % (Auto) 4.4 Eos % (Auto) 0.0 Baso % (Auto) 0.2 Absolute Neuts (auto) 17.0 H Absolute Lymphs (auto) 0.37 L Nucleated RBC % 0 Differential Comment SEE COMMENT Platelet Estimate ADEQUATE RBC Morphology NORM C+C Sodium 139 Potassium 3.8 Chloride 107 Carbon Dioxide 26.0 Anion Gap 6 BUN 10 Creatinine 0.83 Estim Creat Clear Calc 121.07 Est GFR (MDRD) Af Amer 149 Est GFR (MDRD) Non-Af 123 BUN/Creatinine Ratio 12.0 Glucose 91 Calcium 9.3 Total Bilirubin 0.50 Direct Bilirubin 0.18 AST 19 ALT 24 Alkaline Phosphatase 74 Total Protein 7.7 Albumin 4.4 Globulin 3.3 Treatment and Re-Evaluation :: White blood cell count is elevated at 18.3 with 92% neutrophils. This is likely from seizure activity. Chemistry studies unremarkable. LFTs normal. On repeat evaluation patient lying in bed. As I enter the room he will cover his head with a blanket and turn away from it. He would not answer questions. When I pulled the blanket down to ask him to answer my questions he will pull the blanket back up over his head and refused to answer. Friend at bedside states that he went to high school with the patient. He recently moved in with him. Based on what I can see his oxcarbazepine was last filled on April 22. This was a 30-day supply. I believe he has been noncompliant. He will be given a dose of oxcarbazepine here and given a paper prescription for a 1 month supply. I advised the friend that if he has the pills at home he can take that, however he if he does not have the medication he needs to get that filled. He is to follow-up with his neurologist at [facility]. Discharge Plan Triage Chief Complaint: Seizure ED Provider: Fawn Johns Dx/Rx/DC Orders Clinical Impression: Seizure Instructions: ED Seizure, Recurrent (Adult) Prescriptions: New oxcarbazepine 600 mg tablet 600 mg PO BID Qty: 60 0RF No Action levetiracetam [Keppra] 500 mg tablet 500 mg PO BID Qty: 60 2RF ondansetron 4 mg tablet,disintegrating 4 mg PO Q6H PRN (Reason: nausea and vomiting) Qty: 20 0RF levetiracetam [Keppra] 500 mg tablet 500 mg PO BID Qty: 60 0RF Primary Care Provider: Pedro Thompson Referrals: Pedro Thompson MD [Primary Care Provider] - Activity Restrictions/Additional Instructions: Please take your medication as prescribed. Follow-up with your neurologist at [facility]. Disposition Disposition: Home, Self Care
[2023-06-11] MEDS: Ondansetron 4 MG/2 ML Vial IV (15:21)
[2023-06-11] MEDS: LORazepam 2 MG/ML Syringe 1 MG IV (15:21)
[2023-06-11] MEDS: 0.9% Normal Saline 1,000 ML 150 ML IV (15:24)
[2023-06-11 15:57] LABS: Absolute Lymphocyte Count 0.37 X10^3/uL (0.83-4.51); Basophil# 0.04 X10^3/uL; Basophil% 0.2 % (0-1); Hematocrit 41.1 % (40-54); Hemoglobin 14.3 g/dL (13.0-16.5); Lymphocyte # 0.37 X10^3/ul (0.83-4.51); Mean Corp Hgb Conc 34.8 g/dL (32-36); Mean Corpuscular Hgb 28.7 pg (27.0-32.0); Mean Corpuscular Volume 82.5 fL (80-94); Mean Platelet Vol. 9.1 fl (6.2-12.0); Monocyte# 0.81 X10^3/uL; Monocyte% 4.4 % (0-10); NRBC Flagged by Analyzer 0 % (0-5); Neutrophil # 16.98 X10^3/uL (2.7-7.7); Neutrophil % 92.8 % (47-70); POSITIVE DIFFERENTIAL YES; Platelet Count 277 K/mm3 (150-450); RBC Distribution Width CV 12.7 % (11.6-14.6); RBC Distribution Width SD 37.9 fl (35.1-43.9); Red Blood Count 4.98 M/mm3 (4.6-6.2); White Blood Count 18.3 K/mm3 (4.4-11.0)
[2023-06-11 15:58] LABS: Differential Indicated SCAN CRITERIA MET
[2023-06-11 16:14] LABS: AST(SGOT) 19 U/L (15-37); Alanine Aminotransfer ALT/SGPT 24 U/L (16-61); Albumin, Serum 4.4 g/dL (3.2-5.0); Alkaline Phosphatase 74 U/L (45-117); Anion Gap 6 (5-15); BUN 10 mg/dL (7-18); Bilirubin, Direct 0.18 mg/dL (0.00-0.30); Calcium,Total 9.3 mg/dL (8.5-10.1); Chloride 107 mmol/L (98-107); Creatinine, Serum 0.83 mg/dL (0.70-1.30); EST Glomerular Filtration Rate 123 mL/min (>60); Est Glom Filt Rate - Afr Amer 149 mL/min (>60); Estimated Creatinine Clearance 121.07 ml/min; Globulin 3.3 g/dL (2.2-4.2); Glucose 91 mg/dL (74-106); Potassium 3.8 mmol/L (3.5-5.1); Protein, Total 7.7 g/dL (6.4-8.2); Sodium Level 139 mmol/L (136-145)
[2023-06-11 16:24] LABS: Platelet Estimate ADEQUATE (ADEQ); Red Cell Morphology NORM C+C NORMAL (NORM C&C)
[2023-06-11] MEDS: OXcarbazepine 600 MG Tablet PO (17:54)
[2023-06-16 02:07] LABS: Trileptal-Oxcarbazepine < 1 ug/mL (10-35)
== END 2023-06-11 18:02 | disposition home or self-care (01) ==
PROVIDERS: Emergency Provider Emergency Medicine; PCP Pediatrics; Visit Provider Emergency Medicine
DX: R56.9 Unspecified convulsions (principal); R11.0 Nausea; F17.210 Nicotine dependence, cigarettes, uncomplicated; F17.290 Nicotine dependence, other tobacco product, uncomplicated; Z79.899 Other long term (current) drug therapy
CPT/HCPCS: 80048; 80076; 82542; 85025; 96361; 96374; 96375; 99285; J7030; A4216; J2405

== ENCOUNTER 2023-07-14 19:31 | Emergency (ER) | payer MEDICAID, SELFPAY ==
[2023-07-14 19:32] VITALS: BP 123/74; PULSE 93; RESP 18; TEMP 36.1; O2SAT 91; BMI 22.6
[2023-07-14] MEDS: LORazepam 2 MG/ML Syringe IV (19:43)
--- NOTE | 2023-07-14 19:45 | EX.ED.DYSGE1 ---
HPI <Kd oFrd MD - Last Filed: 07/15/23 15:27> History of Present Illness Chief Complaint: Seizure Narrative Narrative: History and physical is limited secondary to patient condition. According to the patient's best friend, they were here early last month in the beginning of June because of seizures. At that time he had multiple seizures a day secondary to noncompliance with medication. His friend states that this is the sixth or seventh seizure that he has had today when he arrived to the emergency department. He does not like to take his medication. He has been noncompliant in the past. EMS brought him in because of multiple seizures today. His friend with whom he lives states that he has followed up with [facility] neurology. 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 PFSH <Kd Ford MD - Last Filed: 07/15/23 15:27> [facility] Medical History Seizure Home Medications levetiracetam 500 mg tablet (Keppra) 500 mg PO BID #60 tabs 06/07/22 [Rx Last Taken Unknown] levetiracetam 500 mg tablet (Keppra) 500 mg PO BID #60 tabs 11/02/22 [Rx Last Taken Unknown] ondansetron 4 mg disintegrating tablet 4 mg PO Q6H PRN nausea and vomiting #20 tabs 11/02/22 [Rx Last Taken Unknown] oxcarbazepine 600 mg tablet 600 mg PO BID #60 tabs 06/11/23 [Rx Last Taken Unknown] Allergy/AdvReac Type Severity Reaction Status Date / Time No Known Allergies Allergy Verified 01/09/22 21:07 Surgical History History of appendectomy Social History household members: family Smoking Status: Current every day smoker tobacco type: cigarettes and e-cigarettes substance use type: marijuana ROS <Kd Ford MD - Last Filed: 07/15/23 15:27> ROS ED Review of Systems ROS Unobtainable: due to mental status EXAM <Kd Ford MD - Last Filed: 07/15/23 15:27> Physical Exam Narrative Exam Narrative: I was called to the room because patient reportedly actively seizing. Afebrile. Vital signs noted. HEENT: Normocephalic. Atraumatic. PERRL, EOMI. Neck soft and supple. No point tenderness or step off. Cardiovascular: Positive tachycardia. No murmurs, rubs, or gallops appreciated. Respiratory: No tachypnea. Lungs clear to auscultation bilaterally. Gastrointestinal: Abdomen soft, nontender, with normoactive bowel sounds. No rebound or guarding. Neurological: Positive seizure activity. Small amount of blood in saliva coming from mouth from where patient bit tongue. Skin: No rash. Normal color. No pallor. Musculoskeletal: No pedal edema. Full range of motion extremities. Const Vital Signs: 07/14/23 19:32 07/14/23 20:22 07/14/23 21:49 Temperature 96.9 F L Temperature Source Temporal Pulse Rate 93 129 H 99 Respiratory Rate 18 18 16 Blood Pressure 123/74 H 99/62 99/61 Blood Pressure Mean 90 74 73 Pulse Ox 91 95 Oxygen Delivery Method Room Air Room Air 07/15/23 00:11 Temperature 97.9 F Temperature Source Pulse Rate 79 Respiratory Rate 18 Blood Pressure 129/80 H Blood Pressure Mean Pulse Ox 100 Oxygen Delivery Method <Dr. Stevenson Braden DO - Last Filed: 07/15/23 00:08> Physical Exam Const Vital Signs: 07/14/23 19:32 07/14/23 20:22 07/14/23 21:49 Temperature 96.9 F L Temperature Source Temporal Pulse Rate 93 129 H 99 Respiratory Rate 18 18 16 Blood Pressure 123/74 H 99/62 99/61 Blood Pressure Mean 90 74 73 Pulse Ox 91 95 Oxygen Delivery Method Room Air Room Air 07/15/23 00:11 Temperature 97.9 F Temperature Source Pulse Rate 79 Respiratory Rate 18 Blood Pressure 129/80 H Blood Pressure Mean Pulse Ox 100 Oxygen Delivery Method [facility] <Kd Ford MD - Last Filed: 07/15/23 15:27> [facility] Narrative Medical decision making narrative: I had been called to the room immediately because of the seizure activity, patient administered Ativan 2 mg intravenously. Seizure precautions were instilled. Whether this was pseudoseizure versus actual seizure, I do feel it is secondary to medication noncompliance. His roommate and best friend said that he had not had a seizure since he was seen here in the emergency department in early June. I reviewed his prior ED visit, and he had been weaned from his Keppra, and placed on oxcarbazepine 600 mg twice a day. His friend states that before he was seen in early June, he had not had a seizure since March. I am unsure as to if he was having more of a pseudoseizure/nonepileptic psychogenic seizure. I would feel laboratory work or imaging is indicated. He will be reexamined as his tonic-clonic activity has ceased. At this point in time, patient signed out to the oncoming physician, Dr. Stevenson Braden, to reevaluate the patient after his postictal state resolves. Patient experienced intermittent hypotension after Ativan, and was bolused normal saline 1 L intravenously. Patient signed out in stable condition. <Dr. Stevenson Braden, DO - Last Filed: 07/15/23 00:08> [facility] Treatment and Re-Evaluation :: Care of the patient was turned over to me pending observation. Patient became more awake and alert. Patient was able to ambulate without difficulty. Patient was instructed to follow-up with his primary care physician in 5 to 7 days for reevaluation. Patient understood and was agreeable with the plan. All questions were answered. Discharge Plan Triage Chief Complaint: Seizure ED Provider: Kd Ford Dx/Rx/DC Orders Clinical Impression: Seizure Instructions: ED Seizure, Recurrent (Adult) Prescriptions: No Action levetiracetam [Keppra] 500 mg tablet 500 mg PO BID Qty: 60 2RF ondansetron 4 mg tablet,disintegrating 4 mg PO Q6H PRN (Reason: nausea and vomiting) Qty: 20 0RF levetiracetam [Keppra] 500 mg tablet 500 mg PO BID Qty: 60 0RF oxcarbazepine 600 mg tablet 600 mg PO BID Qty: 60 0RF Primary Care Provider: Care Physician,No Primary Referrals: Pedro Thompson MD [Non-Staff] - 5-7 Days Disposition Disposition: Home, Self Care Discharge Date/Time: 07/15/23 00:13
[2023-07-14 20:22] VITALS: BP 99/62; PULSE 129; RESP 18
[2023-07-14 21:49] VITALS: BP 99/61; PULSE 99; RESP 16; O2SAT 95
[2023-07-14] MEDS: 0.9% Normal Saline 1,000 ML 999 ML IV (22:13)
[2023-07-15 00:11] VITALS: BP 129/80; PULSE 79; RESP 18; TEMP 36.6; O2SAT 100
== END 2023-07-15 00:13 | disposition home or self-care (01) ==
PROVIDERS: Emergency Provider Emergency Medicine; Visit Provider Emergency Medicine
DX: R56.9 Unspecified convulsions (principal); F17.210 Nicotine dependence, cigarettes, uncomplicated; F12.90 Cannabis use, unspecified, uncomplicated
CPT/HCPCS: 96361; 96374; 99284; A4216